=== PATIENT | male | born 1970 | race African-American/Black ===

== ENCOUNTER 2019-09-04 13:11 | Emergency (ER) | payer OTHER, MEDICAID, SELFPAY ==
[2019-09-04] VITALS (7 sets, daily range): BP systolic 128–151; BP diastolic 82–94; PULSE 75–103; RESP 16–22; TEMP 36.9; O2SAT 97–100
--- NOTE | 2019-09-04 13:20 | DI.RAD.S_ITS ---
PROCEDURE: XR CHEST 2V INDICATIONS: shortness of breath TECHNIQUE: 2 views of the chest were acquired. COMPARISON: None. FINDINGS: Surgical changes and devices: None. Lungs and pleura: Increased attenuation is identified involving the bilateral lung bases. No effusion or pneumothorax is evident. Mediastinum: Mediastinal contours are normal. Heart size is normal. Bones and chest wall: No suspicious bony abnormalities. Degenerative changes of the spine and shoulders are not well evaluated. Soft tissues appear unremarkable. IMPRESSION: Increased density at the lung bases most likely is related to overlying soft tissues of the chest (breast tissue). However, clinical correlation to exclude pneumonia is recommended. Dictated by: David Plata M.D. on 09/04/2019 at 12:49 Approved by: David Plata M.D. on 09/04/2019 at 12:50
--- NOTE | 2019-09-04 13:27 | ED.GENADULT ---
HPI - General Adult General Chief complaint: Shortness of Breath/Dyspnea Stated complaint: Fluid build up SOB with exhurtion Time Seen by Provider: 09/04/19 13:13 Source: patient Mode of arrival: Ambulatory Limitations: no limitations History of Present Illness HPI narrative: Patient is a 48-year-old male. New to this hospital. States that he has had heart issues in the past. He states that he has had a pericardial effusion. In the past. He states this was a couple years ago. He states that he did have it drained. He is unsure how he developed this. Since that time he has followed up with cardiology. He states that he was on a ?water pill ?was also on a cholesterol pill and also a blood pressure medication. He came to the local area approximately 1 month ago after having an issue with his roommate where he lives. He has been living in a cabin on some property in the local area. He states that for the past several weeks he has been out of all of his medications. He attempted to contact the pharmacy to get his medicine refilled and he was told that they were ?canceled ?apparently this has happened to him in the past when he has missed appointments with his primary provider. He states that he has been having some dyspnea on exertion and feels like he potentially has fluid around his heart again. Given the emergency department for evaluation Review of Systems Constitutional Constitutional: Denies fever(s) and Denies headache(s) ENT Ears, Nose, Mouth, and Throat: Denies headache(s) Cardiovascular Cardiovascular: Denies chest pain, Denies rapid heart rate, Denies irregular heart rhythm, Denies leg edema, Reports dyspnea and Reports dyspnea on exertion Respiratory Respiratory: Denies hemoptysis, Reports dyspnea and Reports dyspnea on exertion Gastrointestinal Gastrointestinal: Denies abdominal pain, Denies change in bowel habits, Denies nausea and Denies vomiting Genitourinary Genitourinary: Denies dysuria Genitourinary: Denies dysuria Musculoskeletal Musculoskeletal: Denies myalgias Integumentary/Breasts Skin/Breast: Denies rash Neurologic Neurologic: Denies behavioral changes and Denies headache(s) Psychiatric Psychiatric: Denies behavioral changes Hematologic/Lymphatic Hematologic/Lymphatic: Denies easy bleeding and Denies easy bruising Patient History Medical History (Updated 09/04/19 @ 17:52 by Kyler Wright DO) Cardiomyopathy (Acute) High cholesterol (Acute) Hypertension (Acute) Methamphetamine abuse (Acute) Pericardial effusion (Acute) Psoriasis (Acute) Social History lives independently: Yes Exam Initial Vital Signs Initial Vital Signs: Vital Signs Temperature 98.5 F 09/04/19 13:21 Pulse Rate 103 H 09/04/19 13:21 Respiratory Rate 22 09/04/19 13:21 Blood Pressure 139/93 H 09/04/19 13:21 Pulse Oximetry 100 09/04/19 13:21 Const General: cooperative, comfortable and well developed Limitations: mental status not altered HENMT Head: normal to inspection and normocephalic Chest Chest: No tenderness Resp Effort & Inspection: normal respiratory effort Auscultation: clear to auscultation bilaterally, no rhonchi and no wheezes Cardio Rate: tachycardic Rhythm: regular rhythm Pulses: radial pulses present GI Inspection: non-distended Palpation: soft Neuro General: patient alert, patient awake and patient oriented x3 Cognition: normal cognition Speech: speech normal Extrem General: normal to inspection, capillary refill normal and No edema Psych Appearance: grossly normal and well kempt Scores GCS Jeancarlos coma scale eye opening: Spontaneous Jeancarlos coma scale verbal response: Orientated [place] coma scale motor response: Obey commands Jeancarlos coma scale total score: 15 Course Orders Ordered: ED Orders 09/04/19 13:20 XR chest 2V Stat EKG-12 Lead Stat Measure peak expiratory flow ONCE RT Consult Eval and Treat Now 09/04/19 13:32 Complete Blood Count AUTO DIFF Stat Comprehensive Metabolic Panel Stat Lactate (Lactic Acid) Stat Lipase Stat NT-proBNP (BNP-Adult 18+) Stat Partial Thromboplastin Time Stat Prothrombin Time INR Stat 09/04/19 13:38 EC echo doppler complete Stat 09/04/19 15:43 Consult to [facility] [place] [facility] [employer] Technician Stat Vital Signs Vital signs: Vital Signs - 8 hr 09/04/19 13:21 09/04/19 14:08 09/04/19 14:55 Temperature 98.5 F Pulse Rate 103 H 81 81 Respiratory Rate 22 18 18 Blood Pressure 139/93 H Blood Pressure [Right Arm] 146/93 H 151/91 H Pulse Oximetry 100 100 98 09/04/19 15:46 09/04/19 16:48 09/04/19 17:12 Temperature Pulse Rate 75 83 81 Respiratory Rate 17 20 17 Blood Pressure Blood Pressure [Right Arm] 140/89 147/94 H 128/82 Pulse Oximetry 100 100 98 09/04/19 17:15 Temperature Pulse Rate 82 Respiratory Rate 16 Blood Pressure 128/82 Blood Pressure [Right Arm] Pulse Oximetry 97 Medical Decision Making Medical Records Medical records reviewed: Yes I reviewed the patient's medical records. Lab Data Lab results reviewed: Yes I reviewed the patient's lab results. Result diagrams: 09/04/19 13:32 09/04/19 13:32 Labs: Lab Results 09/04/19 09/04/19 09/04/19 Range/Units 13:32 13:32 13:32 WBC 4.5 (4.5-11.0) X10^3/uL RBC 4.61 (4.5-5.9) X10^6/uL Hgb 14.3 (13.5-17.5) g/dL Hct 42.5 (41-53) % MCV 92.3 (80-100) fL MCH 31.1 (26-34) PG MCHC 33.7 (30-36) % RDW 14.0 (11.6-14.8) % Plt Count 247 (150-400) X10^3/uL Neut % (Auto) 39.7 L (50-75) % Lymph % (Auto) 40.4 H (25-40) % Lee % (Auto) 15.6 H (3-14) % Eos % (Auto) 4.0 (2-4) % Baso % (Auto) 0.3 (0-2) % Neut # (Auto) 1800 (0358-8605) /uL Lymph # (Auto) 1800 (9080-8255) /uL Lee # (Auto) 700 (0-900) /uL Eos # (Auto) 200 (0-450) /uL Baso # (Auto) 0 (0-100) /uL PT (10.1-12.7) SECONDS INR (0.9-1.3) APTT (26.4-36.2) SECONDS Sodium 139 (137-145) mmol/L Potassium 4.1 (3.4-5.1) mmol/L Chloride 104 (98-107) mmol/L Carbon Dioxide 31 (22-32) mmol/L BUN 9 (9-20) mg/dL Creatinine 0.87 (0.66-1.25) mg/dL Estimated GFR > 60.0 (>60) mL/min BUN/Creatinine Ratio 10.3 (6-22) Glucose 70 (70-100) mg/dL Lactate 1.4 (0.7-2.1) mmol/L Calcium 9.2 (8.4-10.2) mg/dL Total Bilirubin 0.6 (0.2-1.3) mg/dL AST 39 (17-59) IU/L ALT 25 (<50) IU/L Alkaline Phosphatase 56 (38-126) U/L NT-Pro-B Natriuret Pep 41 (<125) pg/mL Total Protein 8.2 (6.3-8.2) g/dL Albumin 4.3 (3.5-5.0) g/dL Globulin 3.9 (1.7-4.1) g/dL Albumin/Globulin Ratio 1.1 (1.0-2.8) Lipase (23-300) U/L 09/04/19 09/04/19 Range/Units 13:32 13:32 WBC (4.5-11.0) X10^3/uL RBC (4.5-5.9) X10^6/uL Hgb (13.5-17.5) g/dL Hct (41-53) % MCV (80-100) fL MCH (26-34) PG MCHC (30-36) % RDW (11.6-14.8) % Plt Count (150-400) X10^3/uL Neut % (Auto) (50-75) % Lymph % (Auto) (25-40) % Lee % (Auto) (3-14) % Eos % (Auto) (2-4) % Baso % (Auto) (0-2) % Neut # (Auto) (3108-3557) /uL Lymph # (Auto) (9015-2348) /uL Lee # (Auto) (0-900) /uL Eos # (Auto) (0-450) /uL Baso # (Auto) (0-100) /uL PT 13.1 H (10.1-12.7) SECONDS INR 1.1 (0.9-1.3) APTT 32 (26.4-36.2) SECONDS Sodium (137-145) mmol/L Potassium (3.4-5.1) mmol/L Chloride (98-107) mmol/L Carbon Dioxide (22-32) mmol/L BUN (9-20) mg/dL Creatinine (0.66-1.25) mg/dL Estimated GFR (>60) mL/min BUN/Creatinine Ratio (6-22) Glucose (70-100) mg/dL Lactate (0.7-2.1) mmol/L Calcium (8.4-10.2) mg/dL Total Bilirubin (0.2-1.3) mg/dL AST (17-59) IU/L ALT (<50) IU/L Alkaline Phosphatase (38-126) U/L NT-Pro-B Natriuret Pep (<125) pg/mL Total Protein (6.3-8.2) g/dL Albumin (3.5-5.0) g/dL Globulin (1.7-4.1) g/dL Albumin/Globulin Ratio (1.0-2.8) Lipase 73 (23-300) U/L Imaging Data Chest x-ray: Radiologist's Impression: [place] [address] XRay Report Signed Patient: Hugo LezamaMR#: [id number] : 1970Acct:[id number] Age/Sex: 48 / MDate of Service: 09/04/19 Loc: ED Accession Number: [id number] Procedure: XR chest 2V Ordering Provider: Kyler Wright D.O. PROCEDURE: XR CHEST 2V INDICATIONS: shortness of breath TECHNIQUE: 2 views of the chest were acquired. COMPARISON: None. FINDINGS: Surgical changes and devices: None. Lungs and pleura: Increased attenuation is identified involving the bilateral lung bases. No effusion or pneumothorax is evident. Mediastinum: Mediastinal contours are normal. Heart size is normal. Bones and chest wall: No suspicious bony abnormalities. Degenerative changes of the spine and shoulders are not well evaluated. Soft tissues appear unremarkable. IMPRESSION: Increased density at the lung bases most likely is related to overlying soft tissues of the chest (breast tissue). However, clinical correlation to exclude pneumonia is recommended. Dictated by: David Plata M.D. on 09/04/2019 at 12:49 Approved by: David Plata M.D. on 09/04/2019 at 12:50 echo: Radiologist's Impression: [address] [address] Echocardiography Report Signed Patient: Hugo LezamaMR#: [id number] : 1970Acct:[id number] Age/Sex: 48 / MDate of Service: 09/04/19 Loc: ED Accession Number: [id number] Procedure: EC echo doppler complete Ordering Provider: Kyler Wright D.O. [place] +---------+ [facility] +---------+ : : [address] [place] [address]. : : : : [place] : : : : [id number] : : : : Phone: [phone]---------+ Echocardiogram Report + + :Name: HUGO LEZAMA Study Date: 09/04/2019 Height: 69 in : :[facility] Weight: 230 lb : : Gender: Male BSA: 2.2 m2 : :: 1970 Age: 48 yrs BP: 151/92 mmHg: :Reason For Study: PERICARDIAL EFFUSION AND SOB : :Ordering Physician: [place] : :Hospitalist Performed By: Jossie Samuels : :Referring: KYLER WRIGHT : + + Interpretation Summary Left ventricular systolic function is moderately reduced in a global fashion with an estimated ejection fraction of around 40% without any focal wall motion abnormality. There is moderate concentric LVH with a fairly normal echo reflectance but the strain imaging suggests an abnormal global longitudinal strain of -11% with sparing of the apex, a pattern that can be seen with amyloidosis. Clinical correlation is recommended. Diastolic function is somewhat difficult to assess but parameters suggest the absence of significantly elevated filling pressures. The right ventricle is normal size with mildly reduced systolic function. Right ventricular systolic pressure cannot be estimated but CVP is likely around 3 mmHg. Left atrium is borderline enlarged while the right atrium is normal. There is moderate mitral regurgitation through an anatomically normal appearing valve but no other significant valvular abnormalities. There is a trivial pericardial effusion seen but no evidence for tamponade. Procedure: A two-dimensional transthoracic echocardiogram with color flow and Doppler was performed. The study quality was technically adequate. There is no prior echocardiogram noted for this patient. The patient was in normal sinus rhythm during the exam. The heart rate ranged between 70-85 bpm during the study. Left Ventricle: The left ventricle is normal in size. There is moderate concentric left ventricular hypertrophy. There appears to be normal myocardial reflectance. Left ventricular systolic function is moderately reduced. Left ventricular ejection fraction is estimated to be 40%. Left ventricular global longitudinal strain average is -10.5%. There is moderate global hypokinesis of the left ventricle. There are no focal wall motion abnormalities. Diastolic parameters suggest a relaxation abnormality of the left ventricle, consistent with probable normal filling pressures. Right Ventricle: The right ventricle is normal size. Right ventricular systolic function is mildly reduced. Atria: The left atrium is borderline dilated. Right atrial size is normal. There is no Doppler evidence for an interatrial shunt. Mitral Valve: The mitral valve is grossly normal. The mitral valve leaflets appear mildly thickened, but open well. There is moderate mitral regurgitation. Aortic Valve: The aortic valve opens well. The aortic valve is slightly calcified. There is no aortic valve stenosis. No aortic regurgitation is present. Tricuspid Valve: The tricuspid valve is normal in structure and function. There is trace tricuspid regurgitation. Pulmonary artery pressures cannot be estimated because of the lack of a measurable TR jet velocity but the IVC suggests a CVP of around 3 mmHg. Pulmonic Valve: The pulmonic valve is normal in structure and function. There is trace pulmonic regurgitation. There is no other significant valvular heart disease. Great Vessels: The aortic root is normal size. The ascending aorta is normal in size. The IVC is of normal diameter and collapses greater than 50% with a sniff. This suggests a low right atrial pressure of 3 mm Hg. Pericardium/ Pleura There is a trace pericardial effusion that is circumferential. There is no pleural effusion. MMode/2D Measurements & Calculations LVIDd: 5.1 cm LVOT diam: 2.1 cm LVIDs: 4.1 cm Ao root diam: 3.1 cm FS: 19.7 % asc Aorta Diam: 3.0 cm EPSS: 1.7 cm Ao Arch Diam (Prox Trans): 2.7 cm IVSd: 1.4 cm LVPWd: 1.5 cm LV clinton. diameter/BSA (cm/m^2): 2.3 LV sys. diameter/BSA (cm/m^2): 1.9 LA A2 area: 23.3 cm2 RA long axis: 4.8 cm LA A4 area: 22.3 cm2 RA area: 16.8 cm2 LA length (vol): 5.8 cm RA vol: 49.9 ml LA vol: 75.9 ml RA : 22.8 ml/m2 LA vol index: 34.6 ml/m2 IVC diam: 1.3 cm RVD1 (basal): 3.6 cm TAPSE: 1.8 cm Doppler Measurements & Calculations Ao V2 max: 129.6 cm/sec LVOT Max Scot: 69.7 cm/sec Ao V2 mean: 88.3 cm/sec LV V1 max P.9 mmHg Ao max P.7 mmHg LV V1 VTI: 12.8 cm Ao mean P.6 mmHg CAMRON(I,D): 1.8 cm2 Ao V2 VTI: 23.2 cm CAMRON(V,D): 1.8 cm2 sev ratio: 0.55 CAMRON indexed to BSA (cm^2/m^2): 0.84 MV E max scot: 92.0 cm/sec TR max scot: 230.2 cm/sec MV A max scot: 98.3 cm/sec TR max P.2 mmHg MV E/A: 0.94 PA V2 max: 89.3 cm/sec Med Peak E' Scot: 6.1 cm/sec PA V2 mean: 47.4 cm/sec E/E' med: 15.1 PA mean P.1 mmHg Lat Peak E' Scot: 7.4 cm/sec PA pr(Accel): 45.6 mmHg E/E' lat: 12.5 E/e' average: 13.8 MV dec time: 0.19 sec SV(LVOT): 42.5 ml Reading Physician:PM ECG Data Attestation: I personally reviewed and interpreted this ECG as follows: Prior ECG tracings: not available for review Interpretation: Sinus rhythm Ventricular rate is 69 Left axis deviation LVH Normal QRS Normal QTC No ST T wave changes MDM Narrative Medical decision making narrative: We were able to obtain records from the [facility]. There was mention of a echocardiogram report done approximately 1 year ago which did show a pericardial effusion and an ejection fraction of 35%. I received a call from Dr. Bansal with cardiology today about his echocardiogram. He states that he had a global hypokinesis consistent with cardiomyopathy. There was no focal wall motion abnormalities. There was only a very small pericardial effusion that was felt not to be problematic. I did discuss the patient's methamphetamine abuse with him and Dr. Bansal thought that the findings on the echocardiogram could very well be related to this. Patient did not have his medications with him today. He did not know exactly what medicines he was on or the dosages these medicines. I felt that it would be unwise to prescribe him medications based off of his memory. Patient was seen by social work and was able to get the patient set up with the primary doctor's appointment on of this week. Patient was informed that he should take his medications with him to that appointment so they can refill them. He was given a copy of the records that we obtained today in order to take to that appointment as well. He was given information with regard to this appointment. I feel patient can be safely discharged home without further workup. Patient was given return precautions. He expressed understanding and agreement. Discharge Plan Departure Patient Disposition: Home Clinical Impression: Cardiomyopathy Qualifiers: Cardiomyopathy type: unspecified Qualified Code(s): I42.9 - Cardiomyopathy, unspecified Discharge Date/Time: 09/04/19 17:15 Instructions: Cardiomyopathy Activity Restrictions/Additional Instructions: You were scheduled for a follow-up appointment with nurse amira hamilton at the [facility] on 09/06/19 with a check-in time at 1015 in the morning. I recommend that you bring all of your empty pill bottles with you and also the notes that you were given today. It is important that you keep this appointment. Return to the emergency department for any new symptoms
--- NOTE | 2019-09-04 13:38 | DI.ECHO.S_ITS ---
[facility]+ [facility] +---------+ : : [address] : [place] : : : : [id number] : : : : Phone: [phone] : : [phone]+ Echocardiogram Report + + :Name: MIKHAIL RAMIREZ Study Date: 09/04/2019 Height: 69 in : :[facility] Weight: 230 lb : : Gender: Male BSA: 2.2 m2 : :: 1970 Age: 48 yrs BP: 151/92 mmHg: :Reason For Study: PERICARDIAL EFFUSION AND SOB : :Ordering Physician: [place] : :Hospitalist Performed By: Jossie Samuels : :Referring: LANIE TINOCO : + + Interpretation Summary Left ventricular systolic function is moderately reduced in a global fashion with an estimated ejection fraction of around 40% without any focal wall motion abnormality. There is moderate concentric LVH with a fairly normal echo reflectance but the strain imaging suggests an abnormal global longitudinal strain of -11% with sparing of the apex, a pattern that can be seen with amyloidosis. Clinical correlation is recommended. Diastolic function is somewhat difficult to assess but parameters suggest the absence of significantly elevated filling pressures. The right ventricle is normal size with mildly reduced systolic function. Right ventricular systolic pressure cannot be estimated but CVP is likely around 3 mmHg. Left atrium is borderline enlarged while the right atrium is normal. There is moderate mitral regurgitation through an anatomically normal appearing valve but no other significant valvular abnormalities. There is a trivial pericardial effusion seen but no evidence for tamponade. Procedure: A two-dimensional transthoracic echocardiogram with color flow and Doppler was performed. The study quality was technically adequate. There is no prior echocardiogram noted for this patient. The patient was in normal sinus rhythm during the exam. The heart rate ranged between 70-85 bpm during the study. Left Ventricle: The left ventricle is normal in size. There is moderate concentric left ventricular hypertrophy. There appears to be normal myocardial reflectance. Left ventricular systolic function is moderately reduced. Left ventricular ejection fraction is estimated to be 40%. Left ventricular global longitudinal strain average is -10.5%. There is moderate global hypokinesis of the left ventricle. There are no focal wall motion abnormalities. Diastolic parameters suggest a relaxation abnormality of the left ventricle, consistent with probable normal filling pressures. Right Ventricle: The right ventricle is normal size. Right ventricular systolic function is mildly reduced. Atria: The left atrium is borderline dilated. Right atrial size is normal. There is no Doppler evidence for an interatrial shunt. Mitral Valve: The mitral valve is grossly normal. The mitral valve leaflets appear mildly thickened, but open well. There is moderate mitral regurgitation. Aortic Valve: The aortic valve opens well. The aortic valve is slightly calcified. There is no aortic valve stenosis. No aortic regurgitation is present. Tricuspid Valve: The tricuspid valve is normal in structure and function. There is trace tricuspid regurgitation. Pulmonary artery pressures cannot be estimated because of the lack of a measurable TR jet velocity but the IVC suggests a CVP of around 3 mmHg. Pulmonic Valve: The pulmonic valve is normal in structure and function. There is trace pulmonic regurgitation. There is no other significant valvular heart disease. Great Vessels: The aortic root is normal size. The ascending aorta is normal in size. The IVC is of normal diameter and collapses greater than 50% with a sniff. This suggests a low right atrial pressure of 3 mm Hg. Pericardium/ Pleura There is a trace pericardial effusion that is circumferential. There is no pleural effusion. MMode/2D Measurements & Calculations LVIDd: 5.1 cm LVOT diam: 2.1 cm LVIDs: 4.1 cm Ao root diam: 3.1 cm FS: 19.7 % asc Aorta Diam: 3.0 cm EPSS: 1.7 cm Ao Arch Diam (Prox Trans): 2.7 cm IVSd: 1.4 cm LVPWd: 1.5 cm LV clinton. diameter/BSA (cm/m^2): 2.3 LV sys. diameter/BSA (cm/m^2): 1.9 LA A2 area: 23.3 cm2 RA long axis: 4.8 cm LA A4 area: 22.3 cm2 RA area: 16.8 cm2 LA length (vol): 5.8 cm RA vol: 49.9 ml LA vol: 75.9 ml RA : 22.8 ml/m2 LA vol index: 34.6 ml/m2 IVC diam: 1.3 cm RVD1 (basal): 3.6 cm TAPSE: 1.8 cm Doppler Measurements & Calculations Ao V2 max: 129.6 cm/sec LVOT Max Scot: 69.7 cm/sec Ao V2 mean: 88.3 cm/sec LV V1 max P.9 mmHg Ao max P.7 mmHg LV V1 VTI: 12.8 cm Ao mean P.6 mmHg CAMRON(I,D): 1.8 cm2 Ao V2 VTI: 23.2 cm CAMRON(V,D): 1.8 cm2 sev ratio: 0.55 CAMRON indexed to BSA (cm^2/m^2): 0.84 MV E max scot: 92.0 cm/sec TR max scot: 230.2 cm/sec MV A max scot: 98.3 cm/sec TR max P.2 mmHg MV E/A: 0.94 PA V2 max: 89.3 cm/sec Med Peak E' Scot: 6.1 cm/sec PA V2 mean: 47.4 cm/sec E/E' med: 15.1 PA mean P.1 mmHg Lat Peak E' Scot: 7.4 cm/sec PA pr(Accel): 45.6 mmHg E/E' lat: 12.5 E/e' average: 13.8 MV dec time: 0.19 sec SV(LVOT): 42.5 ml Reading Physician:ANALY
[2019-09-04 13:39] LABS: Add Manual Diff / Slide Review NO; Basophils Absolute Auto 0 /uL (0-100); Basophils Percent Auto 0.3 % (0-2); Eosinophils Absolute Auto 200 /uL (0-450); Hematocrit 42.5 % (41-53); Hemoglobin 14.3 g/dL (13.5-17.5); Lymphocytes Absolute Auto 1800 /uL (1100-4500); Lymphocytes Percent Auto 40.4 % (25-40); Mean Corpuscular HGB Conc 33.7 % (30-36); Mean Corpuscular Hemoglobin 31.1 PG (26-34); Mean Corpuscular Volume 92.3 fL (80-100); Monocytes Absolute Auto 700 /uL (0-900); Monocytes Percent Auto 15.6 % (3-14); Neutrophils Absolute Auto 1800 /uL (1500-7000); Neutrophils Percent Auto 39.7 % (50-75); Platelet Count 247 X10^3/uL (150-400); Red Blood Cell Count 4.61 X10^6/uL (4.5-5.9); White Blood Cell Count 4.5 X10^3/uL (4.5-11.0)
[2019-09-04 13:52] LABS: INR 1.1 (0.9-1.3); Prothrombin Time 13.1 SECONDS (10.1-12.7)
[2019-09-04 13:55] LABS: PTT Partial Thromboplastin Tim 32 SECONDS (26.4-36.2)
[2019-09-04 13:58] LABS: Lactate (Lactic Acid) 1.4 mmol/L (0.7-2.1)
[2019-09-04 14:00] LABS: Alanine Aminotransferase 25 IU/L (<50); Albumin 4.3 g/dL (3.5-5.0); Albumin Globulin Ratio 1.1 (1.0-2.8); Alkaline Phosphatase 56 U/L (38-126); Aspartate Aminotransferase 39 IU/L (17-59); BUN Creatinine Ratio 10.3 (6-22); Bilirubin Total 0.6 mg/dL (0.2-1.3); Blood Urea Nitrogen 9 mg/dL (9-20); Calcium 9.2 mg/dL (8.4-10.2); Carbon Dioxide 31 mmol/L (22-32); Chloride 104 mmol/L (98-107); Estimated Glomerular Filt Rate > 60.0 mL/min (>60); Globulin 3.9 g/dL (1.7-4.1); Glucose 70 mg/dL (70-100); HEMOLYSIS 28 (0-50); Lipase 73 U/L (23-300); Potassium 4.1 mmol/L (3.4-5.1); Sodium 139 mmol/L (137-145); Total Protein 8.2 g/dL (6.3-8.2)
[2019-09-04 14:06] LABS: NT-proBNP (BNP-Adult 18+) 41 pg/mL (<125)
--- NOTE | 2019-09-04 16:33 | CM.SWNOTE ---
BEEF LUGGER note BEEF LUGGER consult requested for patient. Patient is a 48 y/o male who presents to ED with fluid build up and shortness of breath. BEEF LUGGER enters room, introduces self and BEEF LUGGER role. Patient informs BEEF LUGGER that patient has been living in a cabin in the [facility] on friend's property for the last 2-3 months, following a falling out with a roommate in [place], [place]. Patient states that with the COVID pandemic and police violence he was feeling paranoid and wanted to be in the [facility] for a while. Patient reports that cabin has electricity, well water, and cooking devices. Patient informs BEEF LUGGER that he was only planning on staying in the cabin for a short while, but due to COVID, has stayed longer than expected. Patient reports he does not plan to move back to [place], but is unsure if he will remain in [place]. Patient reports he has been out of his medication for a month, but has not established care with a PCP in [place]. Patient states he came to ED today to help get refills for his medications and adress the fluid build up and SOB. BEEF LUGGER exits conversation, and calls [facility] in [place] and [facility] to set up a a new-patient appointment for patient. [facility] not currently taking patients with medicaid. [facility] had openings, and BEEF LUGGER made appt. with BALA Novoa, for 09/05 with a check in time of 1015am. BEEF LUGGER updated patient, who indicated understanding and that this appointment time will work for him. BEEF LUGGER updated Dr. Wright, who will put details of appointment in patient's discharge notes. Pl: Patient to follow up with Jessica Bocanegra 09/05 at 10:15am at [facility]. DENICE Garcias
== END 2019-09-04 17:15 | disposition home or self-care (01) ==
PROVIDERS: Emergency Provider Emergency Medicine
DX: I42.9 Cardiomyopathy, unspecified (principal); R06.02 Shortness of breath
CPT/HCPCS: 36415; 71046; 80053; 83605; 83690; 83880; 85025; 85610; 85730; 93005; 93306; 99284

== ENCOUNTER 2021-02-26 08:32 | Emergency (ER) | payer OTHER, MEDICAID, SELFPAY ==
[2021-02-26] VITALS (8 sets, daily range): BP systolic 114–127; BP diastolic 73–94; PULSE 73–102; RESP 17–18; TEMP 36.6; O2SAT 96–100; BMI 34.0
--- NOTE | 2021-02-26 08:40 | ED_ITS ---
HPI - Nausea/Vomiting/Diarrhea General Chief complaint: Nausea/Vomiting/Diarrhea Stated complaint: Diarrhea for 2 weeks Time Seen by Provider: 02/26/21 08:40 Source: patient Mode of arrival: Ambulatory Limitations: no limitations History of Present Illness HPI Narrative: This is a 50-year-old male comes emergency depart with 2 weeks of diarrhea. Patient states he is up to 10-15 episodes daily but typically very small amounts. No melena or hematochezia. He had some nausea Um would initially started but does not any longer. He has not had any abdominal pain, back or flank pain. He has had normal urination with no dysuria urgency or frequency. He denies any fevers or chills. He has had some mild nasal congestion but relates this to the weather. He denies any chest pain or shortness of breath. He is vaccinated for COVID. Patient has a history of hypertension, pericardial effusion requiring drainage but not surgical intervention several years ago as well as lower extremity edema. 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 He denies any other surgeries or interventions. He denies any allergies to medications. He smokes about 10 cigarettes daily, denies alcohol, he occasionally uses methamphetamines and states his last use was 2 weeks ago. Related Data Previous Rx's Medication Instructions Recorded azithromycin 500 mg tablet 500 mg PO DAILY 3 Days #3 tab 02/26/21 loperamide 2 mg tablet 2 mg PO Q6H PRN #20 tab 02/26/21 Allergies Allergy/AdvReac Type Severity Reaction Status Date / Time No Known Drug Allergies Allergy Verified 02/26/21 08:47 Review of Systems Review of Systems ROS Unobtainable: All systems reviewed & are unremarkable except as noted in HPI and below Patient History Medical History Cardiomyopathy High cholesterol Hypertension Methamphetamine abuse Pericardial effusion Psoriasis Social History lives independently: Yes Smoking Status: Current every day smoker Exam Narrative Exam Narrative: GENERAL: Alert and oriented x three, male in mild distress. HEENT: Head normocephalic, atraumatic, EOMI, pupils reactive, face symmetric, moist mucous membranes NECK: Supple, full range of motion CARDIOVASCULAR: Regular rate and rhythm without murmurs, rubs or gallops. RESPIRATORY: Breath sounds equal bilaterally, no wheezes rales or rhonchi. ABDOMEN: Soft, nontender. Nondistended. Normoactive bowel sounds all 4 quadrants. No guarding or rebound, rigidity, no mass : No CVA tenderness EXTREMITIES: Normal range of motion, no clubbing or edema. Neurovascularly intact NEUROLOGICAL: Cranial nerves II through XII grossly intact. Moving all extremities SKIN: Warm, dry, no petechiae, patient has large silvery plaques on his upper extremities and torso consistent with psoriasis. Initial Vital Signs Initial Vital Signs: Vital Signs Temperature 97.8 F 02/26/21 08:33 Pulse Rate 97 H 02/26/21 08:33 Respiratory Rate 17 02/26/21 08:33 Blood Pressure 127/94 H 02/26/21 08:33 Course Orders Ordered: ED Orders 02/26/21 10:42 COVID19 -Nasal swab/Pre-Proc Stat Discontinued Medications Sodium Chloride (Normal Saline 0.9%) 1,000 mls @ 1,000 mls/hr IV BOLUS ONE Stop: 02/26/21 10:17 Last Infusion: 02/26/21 11:00 Dose: 0 mls/hr Documented by: Admin: 02/26/21 10:03 Dose: 1,000 mls/hr Documented by: CHARU Reevaluation(s) Reevaluation #1: Patient is resting. He has not given a stool sample here in the department. Reviewed his labs and imaging today. He expresses understanding. We discussed he can try loperamide if this is not helpful he could try a very short course of azithromycin although there is possibility that he could have other causes of his and her colitis particularly with his history of psoriasis. Patient expressed understanding that he needs follow-up possibly colonoscopy he c ontinues to have symptoms and he is welcome to return if he is able to give a stool sample in the future. Time: 10:54 Vital Signs Vital signs: Vital Signs - 8 hr 02/26/21 08:33 02/26/21 09:09 Temperature 97.8 F Pulse Rate 97 H 92 H Respiratory Rate 17 18 Blood Pressure 127/94 H 127/94 H Pulse Oximetry 96 MDM - Nausea/Vomiting/Diarrhea Lab Data Result diagrams: 02/26/21 09:19 02/26/21 08:56 Labs: Lab Results 02/26/21 02/26/21 02/26/21 Range/Units 08:56 09:19 09:24 WBC 6.9 (4.5-11.0) X10^3/uL RBC 5.00 (4.5-5.9) X10^6/uL Hgb 15.6 (13.5-17.5) g/dL Hct 46.0 (41-53) % MCV 91.9 (80-100) fL MCH 31.1 (26-34) PG MCHC 33.8 (30-36) % RDW 13.8 (11.6-14.8) % Plt Count 270 (150-400) X10^3/uL Neut % (Auto) 58.9 (50-75) % Lymph % (Auto) 25.8 (25-40) % [place] % (Auto) 12.9 (3-14) % Eos % (Auto) 1.8 L (2-4) % Baso % (Auto) 0.6 (0-2) % Neut # (Auto) 4100 (4670-6828) /uL Lymph # (Auto) 1800 (9473-7112) /uL [place] # (Auto) 900 (0-900) /uL Eos # (Auto) 100 (0-450) /uL Baso # (Auto) 0 (0-100) /uL Sodium 139 (137-145) mmol/L Potassium 4.9 (3.4-5.1) mmol/L Chloride 99 (98-107) mmol/L Carbon Dioxide 34 H (22-32) mmol/L BUN 18 (9-20) mg/dL Creatinine 1.12 (0.66-1.25) mg/dL Estimated GFR > 60.0 (>60) mL/min BUN/Creatinine Ratio 16.1 (6-22) Glucose 91 (70-100) mg/dL Calcium 9.5 (8.4-10.2) mg/dL Total Bilirubin 0.7 (0.2-1.3) mg/dL AST 41 (17-59) IU/L ALT 24 (<50) IU/L Alkaline Phosphatase 66 (38-126) U/L Total Protein 9.2 H (6.3-8.2) g/dL Albumin 4.5 (3.5-5.0) g/dL Globulin 4.7 H (1.7-4.1) g/dL Albumin/Globulin Ratio 1.0 (1.0-2.8) Lipase 162 (23-300) U/L SARS-CoV-2 (PCR) Negative (Negative) 02/26/21 Range/Units 10:42 WBC (4.5-11.0) X10^3/uL RBC (4.5-5.9) X10^6/uL Hgb (13.5-17.5) g/dL Hct (41-53) % MCV (80-100) fL MCH (26-34) PG MCHC (30-36) % RDW (11.6-14.8) % Plt Count (150-400) X10^3/uL Neut % (Auto) (50-75) % Lymph % (Auto) (25-40) % [place] % (Auto) (3-14) % Eos % (Auto) (2-4) % Baso % (Auto) (0-2) % Neut # (Auto) (6298-3238) /uL Lymph # (Auto) (6125-6743) /uL [place] # (Auto) (0-900) /uL Eos # (Auto) (0-450) /uL Baso # (Auto) (0-100) /uL Sodium (137-145) mmol/L Potassium (3.4-5.1) mmol/L Chloride (98-107) mmol/L Carbon Dioxide (22-32) mmol/L BUN (9-20) mg/dL Creatinine (0.66-1.25) mg/dL Estimated GFR (>60) mL/min BUN/Creatinine Ratio (6-22) Glucose (70-100) mg/dL Calcium (8.4-10.2) mg/dL Total Bilirubin (0.2-1.3) mg/dL AST (17-59) IU/L ALT (<50) IU/L Alkaline Phosphatase (38-126) U/L Total Protein (6.3-8.2) g/dL Albumin (3.5-5.0) g/dL Globulin (1.7-4.1) g/dL Albumin/Globulin Ratio (1.0-2.8) Lipase (23-300) U/L SARS-CoV-2 (PCR) Negative (Negative) Imaging Data CT scan - abdomen/pelvis: Radiologist's Impression: [address] [address] [address] Scan Report Signed Patient: Hugo Lezama MR#: [id number] : 1970 Acct:[id number] Age/Sex: 50 / M Date of Service: 02/26/21 Loc: ED Accession Number: [id number] ?? Procedure: CT abdomen pelvis w con Ordering Provider: Tammy Wall D.O. PROCEDURE:? CT ABDOMEN PELVIS W CON ? INDICATIONS:? persistent diarrhea x 2 weeks, psoriasis ? TECHNIQUE:? After the administration of intravenous contrast, axial sections acquired from the lung bases to the pubic symphysis.? Coronal and sagittal reformats were performed.? For radiation dose reduction, the following was used:? automated exposure control, adjustment of mA and/or kV according to patient size.? ? COMPARISON:? None. ? FINDINGS:? Image quality:? Excellent.? ? Lung bases:? Unremarkable. Heart:? Small nonspecific pericardial effusion. ? ABDOMEN: Liver:? Areas of probable geographic fatty infiltration are seen in the right hepatic lobe.? ? Gallbladder:? Unremarkable. Biliary ducts:? Unremarkable.? ? Pancreas:? Unremarkable.? ? Spleen:? Unremarkable.? ? Adrenal Glands:? Unremarkable.? ? Kidneys and Ureters:? Unremarkable.? ? ? Stomach and Bowel:? Multiple nondilated fluid-filled loops of small bowel are seen in the central abdomen.? There is mild bowel wall thickening versus underdistention involving multiple segments of the colon and rectum. Peritoneum:? No abnormal intraperitoneal fluid.? No free air.? ? Ventral Wall: ? No hernias.? Abdominal Nodes:? No retroperitoneal or mesenteric adenopathy by size criteria.? Vessels:? Aorta and inferior vena cava are normal in size.? ? PELVIS: Pelvic Organs:? Unremarkable.? ? Bladder:? Unremarkable.? ? Pelvic Nodes:? Bilateral inguinal lymph nodes are mildly prominent, measuring up to 1 cm in short axis diameter on the right.? No significantly enlarged pelvic lymph nodes are seen. Miscellaneous: No hernias are seen. ? ? ? Bones:? There is mild levoconvex curvature of the lumbar spine with multilevel degenerative changes.? Mild sclerosis is seen surrounding the left sacroiliac joint, suspicious for the sequela of prior sacroiliitis. ? ? IMPRESSION:? 1. Findings suspicious for a nonspecific enterocolitis. 2. Small pericardial effusion. 3. Nonspecific inguinal lymph nodes are borderline in size. 4. Sequela of prior left-sided sacroiliitis.? ? ? Dictated by: Dharmesh Keith M.D. on 02/26/2021 at 10:22 ? ? Approved by: Dharmesh Keith M.D. on 02/26/2021 at 10:35?? MDM Narrative Medical decision making narrative: 50-year-old with complaint of diarrhea for 2 weeks. Labs are reassuring patient was unable to give a stool sample in the department but does have enterocolitis on imaging. 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 He does have a history of psoriasis would likely benefit from colonoscopy and this was discussed. Patient does have options for follow-up. All questions answered. Discharge Plan Departure Patient Disposition: Home Clinical Impression: Enterocolitis Instructions: Diarrhea Activity Restrictions/Additional Instructions: Follow-up if you are continuing to have diarrhea. Your imaging does today shows some changes consistent with enterocolitis. There are many causes for this sometimes bacterial but you can also have autoimmune diseases that cause inflammation of the lining and if he continued to have symptoms colonoscopy for further evaluation would be appropriate as well as testing of your stool. We have not been able to obtain a stool sample for testing but it would be appropriate to take loperamide 4 mg initially followed by 2 mg after each unformed stool for a maximum of 16 mg daily. If you continue to have diarrhea frequently you could take azithromycin for 3 days. Prescription sent to [facility] in [place]. Please return for fevers, new abdominal pain, lightheadedness or passing out, b lack or bloody stools, increasingly frequent diarrhea or amounts of diarrhea or if you have any other new or concerning symptoms. Prescriptions: New loperamide 2 mg tablet 2 mg PO Q6H PRN (Reason: loose stool) Qty: 20 0RF azithromycin 500 mg tablet 500 mg PO DAILY 3 Days Qty: 3 0RF
[2021-02-26 09:29] LABS: Add Manual Diff / Slide Review NO; Basophils Absolute Auto 0 /uL (0-100); Basophils Percent Auto 0.6 % (0-2); Eosinophils Absolute Auto 100 /uL (0-450); Eosinophils Percent Auto 1.8 % (2-4); Hemoglobin 15.6 g/dL (13.5-17.5); Lymphocytes Absolute Auto 1800 /uL (1100-4500); Lymphocytes Percent Auto 25.8 % (25-40); Mean Corpuscular HGB Conc 33.8 % (30-36); Mean Corpuscular Hemoglobin 31.1 PG (26-34); Mean Corpuscular Volume 91.9 fL (80-100); Monocytes Absolute Auto 900 /uL (0-900); Monocytes Percent Auto 12.9 % (3-14); Neutrophils Absolute Auto 4100 /uL (1500-7000); Neutrophils Percent Auto 58.9 % (50-75); Platelet Count 270 X10^3/uL (150-400); Red Cell Distribution Width 13.8 % (11.6-14.8); White Blood Cell Count 6.9 X10^3/uL (4.5-11.0)
[2021-02-26 09:54] LABS: Alanine Aminotransferase 24 IU/L (<50); Albumin 4.5 g/dL (3.5-5.0); Alkaline Phosphatase 66 U/L (38-126); Aspartate Aminotransferase 41 IU/L (17-59); BUN Creatinine Ratio 16.1 (6-22); Bilirubin Total 0.7 mg/dL (0.2-1.3); Blood Urea Nitrogen 18 mg/dL (9-20); Calcium 9.5 mg/dL (8.4-10.2); Carbon Dioxide 34 mmol/L (22-32); Chloride 99 mmol/L (98-107); Estimated Glomerular Filt Rate > 60.0 mL/min (>60); Globulin 4.7 g/dL (1.7-4.1); Glucose 91 mg/dL (70-100); HEMOLYSIS 40 (0-50); Lipase 162 U/L (23-300); Potassium 4.9 mmol/L (3.4-5.1); Sodium 139 mmol/L (137-145); Total Protein 9.2 g/dL (6.3-8.2)
--- NOTE | 2021-02-26 10:01 | DI.CT.S_ITS ---
PROCEDURE: CT ABDOMEN PELVIS W CON INDICATIONS: persistent diarrhea x 2 weeks, psoriasis TECHNIQUE: After the administration of intravenous contrast, axial sections acquired from the lung bases to the pubic symphysis. Coronal and sagittal reformats were performed. For radiation dose reduction, the following was used: automated exposure control, adjustment of mA and/or kV according to patient size. COMPARISON: None. FINDINGS: Image quality: Excellent. Lung bases: Unremarkable. Heart: Small nonspecific pericardial effusion. ABDOMEN: Liver: Areas of probable geographic fatty infiltration are seen in the right hepatic lobe. Gallbladder: Unremarkable. Biliary ducts: Unremarkable. Pancreas: Unremarkable. Spleen: Unremarkable. Adrenal Glands: Unremarkable. Kidneys and Ureters: Unremarkable. Stomach and Bowel: Multiple nondilated fluid-filled loops of small bowel are seen in the central abdomen. There is mild bowel wall thickening versus underdistention involving multiple segments of the colon and rectum. Peritoneum: No abnormal intraperitoneal fluid. No free air. Ventral Wall: No hernias. Abdominal Nodes: No retroperitoneal or mesenteric adenopathy by size criteria. Vessels: Aorta and inferior vena cava are normal in size. PELVIS: Pelvic Organs: Unremarkable. Bladder: Unremarkable. Pelvic Nodes: Bilateral inguinal lymph nodes are mildly prominent, measuring up to 1 cm in short axis diameter on the right. No significantly enlarged pelvic lymph nodes are seen. Miscellaneous: No hernias are seen. Bones: There is mild levoconvex curvature of the lumbar spine with multilevel degenerative changes. Mild sclerosis is seen surrounding the left sacroiliac joint, suspicious for the sequela of prior sacroiliitis. IMPRESSION: 1. Findings suspicious for a nonspecific enterocolitis. 2. Small pericardial effusion. 3. Nonspecific inguinal lymph nodes are borderline in size. 4. Sequela of prior left-sided sacroiliitis. Dictated by: Dharmesh Keith M.D. on 02/26/2021 at 10:22 Approved by: Dharmesh Keith M.D. on 02/26/2021 at 10:35
[2021-02-26] MEDS: SODIUM CHLORIDE 0.9% 1,000 ML 1000 ML IV (10:03)
[2021-02-26 10:48] LABS: COVID19 -Nasal RAPID Negative (Negative)
[2021-02-26 11:38] LABS: COVID19 - ADMIT (NP swab/PCR) Negative (Negative)
== END 2021-02-26 11:01 | disposition home or self-care (01) ==
PROVIDERS: Emergency Provider Emergency Medicine
DX: K52.9 Noninfective gastroenteritis and colitis, unspecified (principal); Z20.822 Contact with and (suspected) exposure to COVID-19
CPT/HCPCS: 36415; 74177; 80053; 83690; 85025; 87635; 96360; 99284; C9803

== ENCOUNTER 2021-03-31 03:14 | Emergency (ER) | payer OTHER, MEDICAID, SELFPAY ==
[2021-03-31 03:22] VITALS: BP 146/72; PULSE 101; RESP 16; TEMP 36.5; O2SAT 100; BMI 30.8
--- NOTE | 2021-03-31 03:27 | DI.RAD.S_ITS ---
PROCEDURE: XR FOOT LT MIN 3V INDICATIONS: swelling and pain left foot TECHNIQUE: 3 views of the foot were acquired. COMPARISON: None. FINDINGS: Bones: No fractures or dislocations. No suspicious bony lesions. No osseous erosive changes. No periosteal reaction. Calcaneal bone spurs. Soft tissues: No tibiotalar joint effusion. Achilles tendon appears normal. Forefoot and midfoot soft tissue swelling noted. No soft tissue gas. IMPRESSION: No fracture. No ramana evidence of osteomyelitis. Plain film radiographs can be insensitive to osteomyelitis during the initial 15 days of the disease process. If there is clinical concern for osteomyelitis, then three-phase nuclear medicine bone scan or MRI should be considered for further evaluation. Dictated by: Mela Novoa MD, PhD on 03/31/2021 at 7:36 Approved by: Mela Novoa MD, PhD on 03/31/2021 at 7:37
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
[2021-03-31] MEDS: IBUPROFEN 400 MG TABLET 800 MG PO (04:09)
[2021-03-31 04:40] LABS: Add Manual Diff / Slide Review NO; Basophils Absolute Auto 100 /uL (0-100); Basophils Percent Auto 0.9 % (0-2); Eosinophils Absolute Auto 300 /uL (0-450); Hematocrit 43.7 % (41-53); Hemoglobin 14.7 g/dL (13.5-17.5); Lymphocytes Absolute Auto 2000 /uL (1100-4500); Lymphocytes Percent Auto 23.3 % (25-40); Mean Corpuscular HGB Conc 33.7 % (30-36); Mean Corpuscular Hemoglobin 30.2 PG (26-34); Mean Corpuscular Volume 89.6 fL (80-100); Monocytes Absolute Auto 900 /uL (0-900); Monocytes Percent Auto 10.2 % (3-14); Neutrophils Absolute Auto 5500 /uL (1500-7000); Neutrophils Percent Auto 62.6 % (50-75); Platelet Count 294 X10^3/uL (150-400); Red Blood Cell Count 4.88 X10^6/uL (4.5-5.9); Red Cell Distribution Width 13.7 % (11.6-14.8); White Blood Cell Count 8.8 X10^3/uL (4.5-11.0)
[2021-03-31 04:46] LABS: BUN Creatinine Ratio 14.7 (6-22); Blood Urea Nitrogen 16 mg/dL (9-20); Calcium 9.6 mg/dL (8.4-10.2); Carbon Dioxide 31 mmol/L (22-32); Chloride 104 mmol/L (98-107); Estimated Glomerular Filt Rate > 60.0 mL/min (>60); Glucose 90 mg/dL (70-100); HEMOLYSIS 18 (0-50); Potassium 4.5 mmol/L (3.4-5.1); Sodium 142 mmol/L (137-145)
[2021-03-31 05:16] VITALS: PULSE 89; RESP 18; O2SAT 99
== END 2021-03-31 08:10 | disposition home or self-care (01) ==
PROVIDERS: Emergency Provider Emergency Medicine
DX: G62.9 Polyneuropathy, unspecified (principal)
CPT/HCPCS: 36415; 73630; 80048; 84550; 85025; 99283